=== PATIENT | male | born 1975 | race Caucasian/White ===

== ENCOUNTER 2016-07-07 22:48 | Emergency (ER) | payer OTHER ==
[~2016-07-07] VITALS: Ht 188 cm; Wt 107.0 kg
[2016-07-07 23:02] VITALS: BP 170/81
[2016-07-07] MEDS ORDERED: ACET-704 PO (23:48)
--- NOTE | 2016-07-07 23:49 | PHYS DOC ---
Past Medical History Past Medical History: Asthma, Diabetes-Type II, Other Additional Past Medical Histor: neurapathy Past Surgical History: No Surgical History Alcohol Use: None Drug Use: None Adult General Chief Complaint Chief Complaint: FOOT INJURY PAIN HPI HPI Patient is a 40 year old male presents to the emergency department with a three -day history of right foot pain. Patient states he jumped into a swimming pool and landed on the heel of his foot. He states he's had pain since that incident but has been ambulatory. Review of Systems Review of Systems Constitutional: Denies fever or chills [] Eyes: Denies change in visual acuity, redness, or eye pain [] HENT: Denies nasal congestion or sore throat [] Respiratory: Denies cough or shortness of breath [] Cardiovascular: No additional information not addressed in HPI [] GI: Denies abdominal pain, nausea, vomiting, bloody stools or diarrhea [] : Denies dysuria or hematuria [] Musculoskeletal: Denies back pain or joint pain [] Integument: Denies rash or skin lesions [] Neurologic: Denies headache, focal weakness or sensory changes [] Endocrine: Denies polyuria or polydipsia [] Allergies Allergies Allergies Coded Allergies Type Severity Reaction Last Updated Verified No Known Drug Allergies 10/30/13 No Physical Exam Physical Exam Constitutional: Well developed, well nourished, no acute distress, non-toxic appearance. [] HENT: Normocephalic, atraumatic, bilateral external ears normal, oropharynx moist, no oral exudates, nose normal. [] Eyes: PERRLA, EOMI, conjunctiva normal, no discharge. [] Neck: Normal range of motion, no tenderness, supple, no stridor. [] Cardiovascular:Heart rate regular rhythm, no murmur [] Lungs & Thorax: Bilateral breath sounds clear to auscultation [] Abdomen: Bowel sounds normal, soft, no tenderness, no masses, no pulsatile masses. [] Skin: Warm, dry, no erythema, no rash. [] Back: No tenderness, no CVA tenderness. [] Extremities: Right foot exam: Ecchymosis medially over the region of the calcaneus. He is tender to palpate over the calcaneus. His Achilles tendon is intact. Remainder of exam unremarkable. Neurologic: Alert and oriented X 3, normal motor function, normal sensory function, no focal deficits noted. [] Psychologic: Affect normal, judgement normal, mood normal. [] Patient's Accu-Chek was 53, he felt weak, was provided with juice, symptoms resolved immediately. 0100: care transferred to Dr. Ricks pending CT report Current Patient Data Vital Signs Vital Signs Date Time Temp Pulse Resp B/P (MAP) Pulse Ox O2 Delivery O2 Flow Rate FiO2 07/07/16 23:02 98.1 110 18 97 Room Air 98.1 Lab Values Laboratory Tests Test 07/07/16 23:11 Glucose (Fingerstick) 54 mg/dL (70-99) L EKG EKG [] Radiology/Procedures Radiology/Procedures Calcaneus x-ray reviewed by Dr. Castaneda, calcaneus fracture present. [] Patient refuses to stay for the CT scan reading of his foot. Patient signed out prior to the evaluation of his CAT scan. Patient stated that there was a delay in care and his CAT scan read secondary to technical difficulties however the patient did not want to stay any further did not want further evaluation at this time. At 0347, the CT scan was finally read, and it revealed a mildly comminuted calcaneus fracture that was seen predominantly affecting the plantar aspect of the calcaneus. There was no evidence of dislocation. There is adjacent stranding to the fat which could be seen with some associated blood within the soft tissues. Patient has been placed in a splint and was given the phone number for Dr. harrison for further evaluation of his calcaneus fracture. ( Patient left prior to completion of the evaluation the ER and left against my medical advice so that I can assist him with more adequate discharge instructions. Patient's initial x-ray revealed a possible calcaneus fracture however was unclear to me whether was new or old or artifact. Omid angle was unaffected that time. However the CT scan clearly shows a fracture. As the fracture is a ready 3 days old, and patient does not have any evidence of neurovascular compromise at this time. I think it would be appropriate to have the current plan to follow-up with orthopedics for evaluation treatment of his calcaneus fracture. Course & Med Decision Making Course & Med Decision Making Pertinent Labs and Imaging studies reviewed. (See chart for details) [] Dragon Disclaimer Dragon Disclaimer This electronic medical record was generated, in whole or in part, using a voice recognition dictation system. Departure Departure Impression: Primary Impression: Avulsion fracture of right calcaneus Disposition: 01 HOME, SELF-CARE Condition: STABLE Referrals: INNA DRAKE MD (PCP) ISIDRO LAZAR MD Patient Instructions: Avulsion Fracture, RICE - Routine Care for Injuries, Easy -to-Read Scripts Acetaminophen With Codeine (TYLENOL WITH CODEINE #3 TABLET) 1 Each Tablet 1 TAB PO PRN Q6HRS Y for PAIN, #20 TAB Prov: PATRICIA AGUILERA APRN 07/07/16 PATRICIA AGUILERA APRN July 07, 2016 23:49 CARISA CHINO MD July 08, 2016 04:07
--- NOTE | 2016-07-08 03:48 | RAD ---
INDICATION: Trauma with calcaneus fracture COMPARISON: None TECHNIQUE: Axial CT images obtained through the calcaneus without contrast. Reformats processed. One or more of the following individualized dose reduction techniques were utilized for this examination: 1. Automated exposure control; 2. Adjustment of the mA and/or kV according to patient size; 3. Use of iterative reconstruction technique. FINDINGS: There is a mildly comminuted calcaneus fracture seen predominantly affecting the plantar aspect of the calcaneus. No evidence of dislocation. There is some mild degenerative changes with osteophyte formation. IMPRESSION: Mildly comminuted fracture of the calcaneus predominantly affecting the plantar aspect. There is adjacent stranding to the fat which could be seen with some associated blood within the soft tissues. Electronically signed by: Nish Berry (July 08, 2016 03:47:47)
--- NOTE | 2016-07-08 07:38 | RAD ---
Right calcaneus, 2 views, 07/07/2016: History: Injury, pain There is a fracture of the posterior/inferior aspect of the calcaneus. The fracture is not significantly displaced. No definite involvement of the anterior aspect of the calcaneus is seen. There is moderate subcutaneous edema along the plantar aspect of the calcaneus. IMPRESSION: Nondisplaced fracture of the posterior/inferior aspect of the right calcaneus.
== END 2016-07-08 02:32 | disposition home or self-care (01) ==
LOC: ER 22:48
DX: S92.001A Unspecified fracture of right calcaneus, initial encounter for closed fracture (principal); J45.909 Unspecified asthma, uncomplicated; E11.40 Type 2 diabetes mellitus with diabetic neuropathy, unspecified; W22.8XXA Striking against or struck by other objects, initial encounter; Y93.39 Activity, other involving climbing, rappelling and jumping off; Y92.34 Swimming pool (public) as the place of occurrence of the external cause; Y99.8 Other external cause status
CPT/HCPCS: 29515; 73650; 73700; 82947; 99285-25

== ENCOUNTER → 2016-07-13 | Outpatient (CLI) | payer OTHER ==
[2013-10-30 04:00] VITALS: BP_DIAS 81
[2016-07-07 23:02] VITALS: BP_SYST 170
[~2016-07-13] MED LIST: ACET-704 PO
--- NOTE | 2016-07-13 11:03 | KCIC ---
PROCEDURE Complete abdominal ultrasound dated 07/13/2016. HISTORY Right upper quadrant pain. TECHNIQUE Routine sonographic imaging performed. COMPARISON None. FINDINGS Liver is of diffuse increased echogenicity, compatible with fatty infiltration. No apparent hepatic mass. Biliary tree normal in caliber. The common bile duct measures 4 millimeter. There echogenic shadowing foci within the gallbladder lumen. No gallbladder wall thickening or pericholecystic fluid. Calculus is identified at the gallbladder neck that does not change in position on decubitus positioning. Right kidney measures 11.6 centimeter in length. Left kidney measures 11.6 centimeter in length. No hydronephrosis. Spleen is homogeneous in echogenicity measures 10.5 centimeters longitudinal dimension. Limited visualized portions of pancreas, aorta and IVC unremarkable. No significant ascites. IMPRESSION - Cholelithiasis with no secondary signs of acute cholecystitis. There is a stone lodged at the gallbladder neck. - Hepatic steatosis. Electronically signed by: Rodrigo Ennis (July 13, 2016 11:02:21)
== END | disposition home or self-care (01) ==
LOC: KCIC US 08:13
PROVIDERS: ATTEND Internal Medicine Gastroenterology
DX: K80.20 Calculus of gallbladder without cholecystitis without obstruction (principal); K76.0 Fatty (change of) liver, not elsewhere classified
CPT/HCPCS: 76700

== ENCOUNTER → 2016-10-23 | Outpatient (CLI) | payer OTHER | END | disposition home or self-care (01) | LOC: PMGWOUND 09:47 | PROVIDERS: ATTEND Preventive Medicine Undersea and Hyperbaric Medicine | DX: E11.621 Type 2 diabetes mellitus with foot ulcer (principal); L97.521 Non-pressure chronic ulcer of other part of left foot limited to breakdown of skin; E11.40 Type 2 diabetes mellitus with diabetic neuropathy, unspecified; J45.909 Unspecified asthma, uncomplicated; F41.9 Anxiety disorder, unspecified; F32.9 Major depressive disorder, single episode, unspecified | CPT/HCPCS: 97597 ==

== ENCOUNTER → 2016-11-11 | Outpatient (CLI) | payer OTHER | END | disposition home or self-care (01) | LOC: PMGWOUND 10:56 | PROVIDERS: ATTEND Preventive Medicine Undersea and Hyperbaric Medicine | DX: E11.621 Type 2 diabetes mellitus with foot ulcer (principal); L97.521 Non-pressure chronic ulcer of other part of left foot limited to breakdown of skin; E11.622 Type 2 diabetes mellitus with other skin ulcer; L97.321 Non-pressure chronic ulcer of left ankle limited to breakdown of skin; F41.9 Anxiety disorder, unspecified; F32.9 Major depressive disorder, single episode, unspecified; E11.40 Type 2 diabetes mellitus with diabetic neuropathy, unspecified; J45.909 Unspecified asthma, uncomplicated | CPT/HCPCS: 97597 ==

== ENCOUNTER → 2016-12-10 | Outpatient (CLI) | payer OTHER | END | disposition home or self-care (01) | LOC: PMGWOUND 12:21 | PROVIDERS: ATTEND Emergency Medicine Undersea and Hyperbaric Medicine | DX: E11.621 Type 2 diabetes mellitus with foot ulcer (principal); L97.521 Non-pressure chronic ulcer of other part of left foot limited to breakdown of skin; F41.9 Anxiety disorder, unspecified; F32.9 Major depressive disorder, single episode, unspecified; E11.40 Type 2 diabetes mellitus with diabetic neuropathy, unspecified; J45.909 Unspecified asthma, uncomplicated | CPT/HCPCS: 99214 ==

== ENCOUNTER → 2018-01-03 | Outpatient (CLI) | payer OTHER | END | disposition home or self-care (01) | LOC: PMGWOUND 12:37 | PROVIDERS: ATTEND Emergency Medicine Undersea and Hyperbaric Medicine | DX: E11.621 Type 2 diabetes mellitus with foot ulcer (principal); L97.411 Non-pressure chronic ulcer of right heel and midfoot limited to breakdown of skin; E11.40 Type 2 diabetes mellitus with diabetic neuropathy, unspecified; E11.43 Type 2 diabetes mellitus with diabetic autonomic (poly)neuropathy; K31.84 Gastroparesis; L84 Corns and callosities; F41.9 Anxiety disorder, unspecified; F32.9 Major depressive disorder, single episode, unspecified; J45.909 Unspecified asthma, uncomplicated | CPT/HCPCS: 97597 ==

== ENCOUNTER → 2018-01-10 | Outpatient (CLI) | payer OTHER | END | disposition home or self-care (01) | LOC: PMGWOUND 13:23 | PROVIDERS: ATTEND Emergency Medicine Undersea and Hyperbaric Medicine | DX: E11.621 Type 2 diabetes mellitus with foot ulcer (principal); L97.521 Non-pressure chronic ulcer of other part of left foot limited to breakdown of skin; E11.42 Type 2 diabetes mellitus with diabetic polyneuropathy; E11.43 Type 2 diabetes mellitus with diabetic autonomic (poly)neuropathy; K31.84 Gastroparesis; L84 Corns and callosities; F41.9 Anxiety disorder, unspecified; F32.9 Major depressive disorder, single episode, unspecified; J45.909 Unspecified asthma, uncomplicated | CPT/HCPCS: 97597 ==

== ENCOUNTER → 2018-01-20 | Outpatient (CLI) | payer OTHER | END | disposition home or self-care (01) | LOC: PMGWOUND 09:05 | PROVIDERS: ATTEND Preventive Medicine Undersea and Hyperbaric Medicine | DX: E11.621 Type 2 diabetes mellitus with foot ulcer (principal); L97.422 Non-pressure chronic ulcer of left heel and midfoot with fat layer exposed; E11.43 Type 2 diabetes mellitus with diabetic autonomic (poly)neuropathy; K31.84 Gastroparesis; L84 Corns and callosities; F41.9 Anxiety disorder, unspecified; F32.9 Major depressive disorder, single episode, unspecified; J45.909 Unspecified asthma, uncomplicated | CPT/HCPCS: 11042 ==

== ENCOUNTER → 2018-02-03 | Outpatient (CLI) | payer OTHER | END | disposition home or self-care (01) | LOC: PMGWOUND 11:15 | PROVIDERS: ATTEND Emergency Medicine Undersea and Hyperbaric Medicine | DX: E11.621 Type 2 diabetes mellitus with foot ulcer (principal); L97.521 Non-pressure chronic ulcer of other part of left foot limited to breakdown of skin; E11.43 Type 2 diabetes mellitus with diabetic autonomic (poly)neuropathy; K31.84 Gastroparesis; L84 Corns and callosities; F41.9 Anxiety disorder, unspecified; J45.909 Unspecified asthma, uncomplicated; F32.9 Major depressive disorder, single episode, unspecified | CPT/HCPCS: 99213 ==

== ENCOUNTER → 2018-06-07 | Outpatient (CLI) | payer OTHER ==
[~2018-06-07] MED LIST changes: +IOHEXOL 300 MG/ML 100ML VIAL. IV ONE
--- NOTE | 2018-06-07 16:35 | KCIC ---
CTA OF THE CHEST WITH AND WITHOUT CONTRAST Clinical indications: Shortness of air. Swelling of right lower extremity for one month. Technique: Noncontrast axial localizer was performed. After IV infusion of 100 cc of Omnipaque 300, helical CT scanning of the chest was performed using the CT pulmonary embolism protocol. A coronal MIP reconstruction was generated. PQRS compliance Statement One or more of the following individualized dose reduction techniques were utilized for this study: 1. Automated exposure control 2. Adjustment of the mA and/or kV according to patient size 3. Use of iterative reconstruction technique Comparison: No previous chest CT available. Findings: No pulmonary embolism is evident. No focal aneurysmal dilatation of dissection of thoracic aorta is seen. The heart size is normal and no pericardial effusion is seen. No enlarged thoracic lymphadenopathy is evident. There is a small hiatal hernia present. There is wall thickening of the esophagus which may be secondary to reflux esophagitis. There is linear atelectasis or scarring of the left lower lobe. No lung consolidation or lung mass or pleural effusion or pneumothorax is seen. There is nodularity of the distal trachea. Proximal bronchial tree is patent otherwise. No adrenal mass is evident. No lytic process is seen. IMPRESSION: No pulmonary embolism. No acute lung consolidation. Small hiatal hernia. Wall thickening of the esophagus which may be secondary to reflux esophagitis. There is nodularity of the distal trachea. This may be due to adherent mucus but may be seen with papillomatosis. Electronically signed by: Srinivas Lester MD (06/07/2018 4:33 PM) [id number]
== END | disposition home or self-care (01) ==
LOC: KCIC CT 11:19
PROVIDERS: ATTEND Family Medicine
DX: K44.9 Diaphragmatic hernia without obstruction or gangrene (principal); R22.41 Localized swelling, mass and lump, right lower limb
CPT/HCPCS: 71275; 82565; Q9967